=== PATIENT | female | born 1975 | race African-American/Black ===

== ENCOUNTER 2019-11-06 16:30 | Emergency (ER) | payer MEDICAID ==
[~2019-11-06] VITALS: Ht 175.3 cm; Wt 72.0 kg
[2019-11-06] MEDS ORDERED: IBUPROFEN 600MG TABLET PO ONE (17:15)
[2019-11-06 17:20] LABS: BASOPHILS % 0.5 % (0.0-2.0); EOSINOPHILS % 1.5 % (0.0-5.0); HEMOGLOBIN. 11.9 g/dL (12.0-16.0); LYMPHOCYTES % 32.7 % (20.0-50.0); MEAN CORPUSCULAR HEMOGLOBIN 26.3 pg (28.0-32.0); MEAN CORPUSCULAR VOLUME 81.4 fL (81.0-99.0); MEAN PLATELET VOLUME 7.8 fl (7.4-10.4); MONOCYTES % 12.7 % (2.0-8.0); NEUTROPHILS % 52.6 % (40.0-76.0); PLATELET 208 x1000/uL (130-400); RED BLOOD CELL COUNT 4.54 mill/uL (4.2-5.4); RED CELL DISTRIBUTION WIDTH 15.9 % (11.6-14.6)
[2019-11-06 17:27] LABS: CHLORIDE 102 mEq/L (98-107)
[2019-11-06] MEDS ORDERED: POTASSIUM CHLORIDE 20MEQ TABLET SR PO ONE (17:30)
[2019-11-06 18:30] VITALS: BP 133/78
== END 2019-11-06 18:36 | disposition home or self-care (01) ==
LOC: ER 16:30
DX: J18.9 Pneumonia, unspecified organism (principal); I10 Essential (primary) hypertension; E11.9 Type 2 diabetes mellitus without complications; J45.909 Unspecified asthma, uncomplicated
CPT/HCPCS: 36415; 71045; 80053; 81025; 84484; 85025; 93005; 99285

== ENCOUNTER 2024-10-21 20:15 | Emergency (ER) | payer MEDICAID ==
[~2024-10-21] VITALS: Ht 177.8 cm; Wt 118.0 kg
[2024-10-21 20:20] VITALS: O2SAT 98
[2024-10-21] MEDS: VANCOMYCIN 1G PREMIX 200 ML IV ONE (21:00)
[2024-10-21 21:15] LABS: BASOPHILS % 0.4 % (0.0-2.0); EOSINOPHILS % 0.4 % (0.0-5.0); HEMATOCRIT. 34.9 % (36.0-48.0); HEMOGLOBIN. 11.4 g/dL (12.0-16.0); LYMPHOCYTES % 20.5 % (20.0-50.0); MEAN PLATELET VOLUME 8.5 fl (7.4-10.4); MONOCYTES % 14.0 % (2.0-8.0); NEUTROPHILS % 64.7 % (40.0-76.0); PLATELET 165 x1000/uL (130-400); RED BLOOD CELL COUNT 4.36 mill/uL (4.2-5.4); RED CELL DISTRIBUTION WIDTH 15.7 % (11.6-14.6)
[2024-10-21 21:24] LABS: INR 1.1
[2024-10-21 21:28] LABS: CREATININE 1.2 mg/dL (0.6-1.0); ETHANOL BLOOD < 10 mg/dL (<10); UREA NITROGEN BLOOD 10 mg/dL (9-23)
[2024-10-21 21:29] LABS: ASPARTATE AMINOTRANSFERASE 25 IU/L (<34)
[2024-10-21 21:30] LABS: BILIRUBIN DIRECT 0.2 mg/dL (<=3.0); BILIRUBIN TOTAL 0.7 mg/dL (0.1-1.0); PROTEIN TOTAL 6.9 g/dL (6.0-8.3)
[2024-10-21] MEDS: SODIUM CHLORIDE 0.9% (SEPSIS BOLUS) IV ONE (21:33)
[2024-10-21] MEDS: PIPERACILLIN/TAZO 3.375G/50ML 50 ML IV ONE (21:51)
[2024-10-21] MEDS: MEROPENEM 1G/100ML 100 ML IV SCH (22:16)
[2024-10-21] MEDS: ACETAMINOPHEN 325MG TABLET PO SCH (23:00)
[2024-10-21] MEDS: INSULIN REGULAR (HUMULIN R) 1000UNITS/10ML VIAL IV ONE (23:15)
[2024-10-21 23:26] VITALS: TEMP 38.1
[2024-10-22] MEDS: KCL 20MEQ/100ML PREMIX 100 ML IV SCH
[2024-10-22] MEDS: POTASSIUM CHLORIDE 20MEQ/PACKET PO SCH (00:39)
[2024-10-22 00:59] VITALS: BP 152/86; PULSE 107; RESP 20; O2SAT 98
== END 2024-10-22 01:02 | disposition short-term general hospital (02) ==
LOC: ER 20:15 → EDBEDREQ 23:18 → EDBEDREQSVC 23:18 → EDBEDREQTM 23:18 → ER 10-22 01:02 → CMPBEDREQ 10-22 10:35
DX: A41.9 Sepsis, unspecified organism (principal); E11.65 Type 2 diabetes mellitus with hyperglycemia; R50.9 Fever, unspecified; I10 Essential (primary) hypertension; I25.2 Old myocardial infarction; J45.909 Unspecified asthma, uncomplicated; Z88.0 Allergy status to penicillin; Z88.1 Allergy status to other antibiotic agents; Z88.5 Allergy status to narcotic agent
CPT/HCPCS: 80076; 80048; 82010; 80320; 82962 ×2; 83605; 85025; 85610; 87040; 36415; 84145; 71045; 93005; 96367; 96365; 96375; 99291; J2185; J2543; J3373; J7030; Z7610; J1815; G0480